=== PATIENT | female | born 1960 | race Caucasian/White ===

== ENCOUNTER 2025-01-18 15:51 | Emergency (ER) | payer MEDICAID ==
[~2025-01-18] VITALS: Ht 165.1 cm; Wt 100.0 kg
[~2025-01-18 15:51] MED LIST: DIAZ5TAB4 PO; GABA-530 PO; HYDR-4383 PO
--- NOTE | 2025-01-18 16:27 | Physician Documentation ---
History of Present Illness ~ Chief Complaint: Mental Health Eval Stated Complaint: SI Time Seen by MD: 16:13 HPI 64-year-old female with a history of psychiatric illness and psychiatric hold at multiple hospitals presents today with a complaint of SI. She also states she has a history of a CVA. She says that she primarily feels depressed. When asked if she has any plans to harm herself she can not verbalize any specific plans. States she just wants to hurt herself. Day of Onset: Jan 18, 2025 Medication Reconciliation Allergies: Coded Allergies: No Known Allergies (Unverified , 06/23/14) Scheduled Amlodipine Besylate (Amlodipine Besylate), 1 TAB PO DAILY, (Reported) Atorvastatin Calcium (Atorvastatin Calcium), 1 TAB PO DAILY, (Reported) Bupropion HCl (Bupropion HCl Sr), 1 TAB PO BID, (Reported) Gabapentin (Gabapentin), 1 CAP PO DAILY, (Reported) Mirabegron (Mirabegron ER), 1 TAB PO DAILY, (Reported) Propranolol Hcl (Propranolol Hcl), 1 TAB PO BID, (Reported) Quetiapine Fumarate (Quetiapine Fumarate), 1 TAB PO HS, (Reported) Solifenacin Succinate (Solifenacin Succinate), 1 TAB PO DAILY, (Reported) Trazodone HCl (Trazodone HCl), 1 TAB PO HS, (Reported) Vortioxetine Hydrobromide (Brintellix), 1 TAB PO DAILY, (Reported) Scheduled PRN Tramadol Hcl (Tramadol Hcl), 1 TAB PO BID PRN for pain, (Reported) Miscellaneous Medications Semaglutide (Ozempic), (Reported) Discontinued Medications Diazepam (Diazepam), 1 TABLET PO BID, (Reported) Discontinued Reason: Other Gabapentin (Gabapentin), 1 CAP PO QAM, (Reported) Discontinued Reason: Other Hydrocodone/Acetaminophen ([place] 5-325 Tablet), 1 TABLET PO Q4H PRN for pain, (Reported) Discontinued Reason: Other Past Medical History Past Medical History: Anxiety Past Surgical History: no surgical history Lives In: Home Occupation: employed Physical Exam Vital Signs: Heart Rate: 71, Respiratory Rate: 16, BP: 137/79, Pulse Oximetry: 96, Weight: 100.000 Oxygen Flow Rate: 0 Physical Exam General: Alert, no apparent distress. Neurologic: Oriented x4. Psychiatric:flat afect Skin: Normal color, warm and dry. No edema, no ecchymosis. Progress Results/Orders Results/Orders Orders - JUANJOSE TALAVERA NP [facility] Rec (01/18/25 16:27) 1799.11 (01/18/25 16:27) Close Observation Level (01/18/25 16:27) Covid19 Binax Poc Result Entry (01/18/25 16:27) Substance Use Navigator (01/18/25 16:27) Regular Diet (01/18/25 Dinner) Bupropion Sr Tablet (Welbutrin Sr Tablet (01/18/25 20:00) Gabapentin Capsule (Neurontin Capsule) (01/19/25 08:00) Tramadol Tablet (Ultram Tablet) (01/18/25 19:40) Trazodone Tablet (Desyrel Tablet) (01/18/25 21:00) Amlodipine Tablet (Norvasc Tablet) (01/19/25 08:00) Miscellaneous (Patient's Own Medication) (01/19/25 08:00) Propranolol Tablet (Propranolol Tablet) (01/18/25 20:00) Quetiapine Fumarate Tablet (Seroquel) (01/18/25 21:00) Vortioxetine Hbr Tablet (Trintellix Tabl (01/19/25 08:00) Miscellaneous (Patient's Own Medication) (01/19/25 08:00) Completed Orders - JUANJOSE TALAVERA NP Cbc/Diff (01/18/25 16:27) Urinalysis (01/18/25 16:27) Hcg, Ur Ql (01/18/25 16:27) Drug Screen, Urine (01/18/25 16:27) Ethanol (01/18/25 16:27) TSH (01/18/25 16:27) BMP (01/18/25 16:27) Medications Received in ER Medications (Trade) Dose Ordered Sig/Je Route PRN Reason Start Time Stop Time Status Last Admin Dose Admin (Neurontin capsule) 400 mg DAILY PO 01/19/25 08:00 01/19/25 07:46 400 MG (Norvasc tablet) 10 mg DAILY PO 01/19/25 08:00 01/19/25 07:46 10 MG (Trintellix tablet) 20 mg DAILY PO 01/19/25 08:00 01/19/25 07:49 20 MG Vital Signs 01/18/25 01/19/25 01/19/25 01/19/25 16:02 05:40 06:24 07:46 Temp 98.0 Pulse 71 70 70 Resp 16 20 B/P (MAP) 137/79 126/75 (92) Pulse Ox 96 97 O2 Flow Rate 0 0 Laboratory Tests Test 01/18/25 16:49 01/18/25 19:05 01/18/25 20:30 White Blood Count 7.6 Red Blood Count 4.74 Hemoglobin 13.6 Hematocrit 40.6 Mean Corpuscular Volume 85.8 Mean Corpuscular Hemoglobin 28.8 Mean Corpuscular Hemoglobin Concent 33.6 Red Cell Distribution Width 15.0 H Platelet Count 199 Mean Platelet Volume 8.9 Neutrophils (%) (Auto) 56.2 Lymphocytes (%) (Auto) 31.3 Monocytes (%) (Auto) 8.3 Eosinophils (%) (Auto) 3.6 Basophils (%) (Auto) 0.6 Neutrophils # (Auto) 4.3 Lymphocytes # (Auto) 2.4 Monocytes # (Auto) 0.6 Eosinophils # (Auto) 0.3 Basophils # (Auto) 0.0 CBC Comment Sodium Level 141 Potassium Level 4.1 Chloride Level 105 Carbon Dioxide Level 30.4 Anion Gap 6 L Blood Urea Nitrogen 18 Creatinine 1.01 H Estimated GFR/1.73 m2 56 BUN/Creatinine Ratio 17.8 Glucose Level 104 Calcium Level 9.0 Albumin 3.3 L Thyroid Stimulating Hormone (TSH) 1.85 Chemistry Comments Ethyl Alcohol Level < 10 SARS-CoV-2 Antigen (Rapid) Negative Urine Specimen Description Voided Urine Color Yellow Urine Clarity Clear Urine pH 6.0 Urine Specific [place] 1.025 Urine Protein Negative Urine Glucose (UA) Negative Urine Ketones Negative Urine Occult Blood Negative Urine Nitrite Negative Urine Bilirubin Negative Urine Urobilinogen 0.2 Urine Leukocyte Esterase Negative Volume Urine Centrifuged 10 ml Urine HCG, Qualitative Negative Urine Comment Urine Opiates Screen Negative Urine Methadone Screen Negative Urine Fentanyl Screen Negative Urine Barbiturates Screen Negative Urine Phencyclidine Screen Negative Urine Amphetamines Screen Negative Urine Benzodiazepines Screen Negative Urine Cocaine Screen Negative Urine Cannabinoids Screen Positive Drug Screen Comment Medical Decision Making Findings patient has history of suicide ideation and attempts, for a feel obligated to place a 1799 hold on for [facility] to evaluate patient Differential Dx:Considerations: Include: Alcohol abuse, Anxiety, Bipolar disorder, Conversion disorder, Depression, Encephaloathy, Homicidal, Panic disorder, Personality disorder, Schizophrenia, Substance abuse, Suicidal, Other Departure Disposition: 01 HOME / SELF CARE / HOMELESS Impression: Primary Impression: Suicidal ideation Additional Impression: Depression Additional Impression Text After [facility] fully evaluated patient they came up with a safety plan. Patient is being followed by a therapist and will follow up in the outpatient setting for medication refills. Additional Instructions: Transfer orders for [facility]: At this time there is no evidence of an emergent medical condition that would preclude (admission/transfer) to a psychiatric unit via [facility] protocol for further psychiatric, as well as medical evaluation and treatment. At this time I have no reason to believe that transfer via [facility] protocol would have serious medical compromise in the patient's health. Referrals: NO PRIMARY CARE PROVIDER (PCP) Signature Scribe Signature: f Attestation: Scribed for Juanjose Talavera Director Of Financial Reporting by Juanjose Capone NP . 01/18/25 18:36 JUANJOSE TALAVERA NP Jan 18, 2025 16:27
[2025-01-18 17:10] LABS: BASOPHILS % (AUTO) 0.6 % (0-1); EOSINOPHILS # (AUTO) 0.3 X10'3 (0-0.9); EOSINOPHILS % (AUTO) 3.6 % (0-6); HEMATOCRIT 40.6 % (35.0-45.0); HEMOGLOBIN 13.6 g/dl (12.0-16.0); LYMPHOCYTES # (AUTO) 2.4 X10'3 (1.1-4.8); LYMPHOCYTES % (AUTO) 31.3 % (21-51); MEAN CORPUSCULAR HEMOGLOBIN 28.8 PG (27.0-31.0); MEAN CORPUSCULAR HGB CONC 33.6 g/dL (33.0-36.5); MEAN CORPUSCULAR VOLUME 85.8 FL (78-98); MEAN PLATELET VOLUME 8.9 FL (7.4-10.4); MONOCYTES # (AUTO) 0.6 X10'3 (0-0.9); MONOCYTES % (AUTO) 8.3 % (2-12); NEUTROPHILS # (AUTO) 4.3 X10'3 (1.8-7.7); NEUTROPHILS % (AUTO) 56.2 % (42-75); PLATELET COUNT 199 X10'3 (140-440); RED BLOOD COUNT 4.74 X10'6 (4.20-5.60); WHITE BLOOD COUNT 7.6 X10'3 (4.5-11.0)
[2025-01-18 17:24] LABS: ALBUMIN 3.3 G/DL (3.4-5.0); ANION GAP 6 (8-16); BLOOD UREA NITROGEN 18 MG/DL (7-18); BUN/CREATININE RATIO 17.8 (10.0-20.0); CHLORIDE 105 MMOL/L (99-107); CREATININE 1.01 MG/DL (0.40-0.90); GLUCOSE 104 MG/DL (70-104); POTASSIUM 4.1 MMOL/L (3.5-5.1); SODIUM 141 MMOL/L (135-145); THYROID STIMULATING HORMONE 1.85 ulU/ml (0.34-4.50); TOTAL CARBON DIOXIDE 30.4 MMOL/L (24-32); eCRCL 52 ML/MIN; eGFR 56 ML/MIN
[2025-01-18 17:37] LABS: ETHANOL < 10 MG/DL (<10)
[2025-01-18] MEDS ORDERED: TRAZ-251 PO (19:24)
[2025-01-18] MEDS ORDERED: QUET300T20 PO (19:24)
[2025-01-18] MEDS ORDERED: SEMA0.258 (19:24)
[2025-01-18] MEDS ORDERED: VORT20TA PO (19:24)
[2025-01-18] MEDS ORDERED: TRAM50TA2 PO (19:24)
[2025-01-18] MEDS ORDERED: MIRA25TA5 PO (19:24)
[2025-01-18] MEDS ORDERED: GABA-535 PO (19:24)
[2025-01-18] MEDS ORDERED: ATOR20TA66 PO (19:24)
[2025-01-18] MEDS ORDERED: BUPR100T15 PO (19:24)
[2025-01-18] MEDS ORDERED: PROP20TA6 PO (19:26)
[2025-01-18] MEDS ORDERED: SOLI5TAB8 PO (19:26)
[2025-01-18] MEDS ORDERED: AMLO10TA13 PO (19:26)
[2025-01-18] MEDS ORDERED: traMADol 50MG tablet PO PRN (19:40)
[2025-01-18 20:36] LABS: BILIRUBIN,URINE NEGATIVE (Neg); CLARITY,URINE CLEAR (Clear); COLOR,URINE YELLOW (Yellow); GLUCOSE, URINE NEGATIVE (Neg); KETONES,URINE NEGATIVE (Neg); LEUKOCYTE ESTERASE ,URINE NEGATIVE (Neg); NITRITES, URINE NEGATIVE (Neg); OCCULT BLOOD,URINE NEGATIVE (Neg); PROTEIN,URINE NEGATIVE (Neg); URINE HCG NEGATIVE (NEG); UROBILINOGEN,URINE 0.2 E.U/dL (0.2-1.0)
[2025-01-18 20:41] LABS: UA COLLECTION TYPE VOIDED
[2025-01-18 20:47] LABS: URINE AMPHETAMINE SCREEN NEGATIVE (Neg); URINE BARBITUATE SCREEN NEGATIVE (Neg); URINE BENZODIAZEPINES SCREEN NEGATIVE (Neg); URINE CANNABINOID SCREEN POSITIVE (Neg); URINE COCAINE SCREEN NEGATIVE (Neg); URINE METHADONE SCREEN NEGATIVE (Neg); URINE OPIATE SCREEN NEGATIVE (Neg); URINE PHENCYCLIDINE SCREEN NEGATIVE (Neg)
[2025-01-18] MEDS: buPROPion SR 100mg tab PO SCH (21:08)
[2025-01-18] MEDS: propranolol 40mg tablet PO SCH (21:08)
[2025-01-18] MEDS: traZODone 50mg tablet PO SCH (21:08)
[2025-01-18] MEDS: quetiapine 100mg tablet PO SCH (21:08)
[2025-01-19 05:40] VITALS: TEMP 98
[2025-01-19] MEDS: MIRABEGRON 25 MG PO SCH (07:22)
[2025-01-19] MEDS: gabapentin 400mg capsule PO SCH (07:46)
[2025-01-19] MEDS: amLODIPine 5mg tablet PO SCH (07:46)
[2025-01-19] MEDS: vortioxetine HBr tablet 5 MG TABLET PO SCH (07:49)
[2025-01-19 12:01] VITALS: BP 146/91; PULSE 71; RESP 16; O2SAT 96
== END 2025-01-19 12:32 | disposition home or self-care (01) ==
LOC: ER 15:51
DX: R45.851 Suicidal ideations (principal); F32.A Depression, unspecified; F41.9 Anxiety disorder, unspecified; Z86.73 Personal history of transient ischemic attack (TIA), and cerebral infarction without residual deficits; Z79.899 Other long term (current) drug therapy; Z20.822 Contact with and (suspected) exposure to COVID-19
CPT/HCPCS: 36415; 80048; 80305; 80320; 81003; 81025; 84443; 85025; 87811; 99284; C2617